=== PATIENT | female | born 1955 | race Caucasian/White ===

== ENCOUNTER 2019-09-07 22:43 | Inpatient (IN) | payer BC ==
[~2019-09-07] VITALS: Ht 175.3 cm; Wt 65.6 kg
--- NOTE | ~2019-09-07 | HEMODYNAMI ---
PATIENT:LUDMILA HAUSER MEDICAL RECORD: [id number] : 57 [id number] ADMISSION DATE: 09/07/19 Generatedon:09/08/201911:34 Patient name: LUDMILA HAUSER Patient #: [id number] SSN: [id number] : 1955 Date of study: 09/08/2019 Page: Of Hemodynamic Procedure Report Patient Data Patient Demographics Procedure consent was obtained First Name: LUDMILA Gender: Female Last Name: MURTAZA : 1955 [facility] Initial: L Age: 64 year(s) Patient #: [id number] Race: Unknown SSN: [id number] Additional ID: [id number] Contact details [address]: [address] [place] [address] State: [place] City: [place] Zip code: [address] Past Medical History Allergies: No known allergies Admission Admission Data Admission Date: 09/07/2019 Admission Time: 23:02 Arrival Date: 09/08/2019 Arrival Time: 0:00 Admit Source: Other Insurance Payor: Private Room #: D.[id number] health insurance Height (in.): 68.9 BSA: 1.79 (m2) Height (cm.): 175 BMI: 21.22 (kg/m2) Weight (lbs.): 143.3 Weight (kg.): 65 Lab Results Lab Result Date: 09/08/2019 Lab Result Time: 0:00 Biochemistry Name Units Result Min Max BUN mg/dl 9 --(*---)-- 7 18 Creatinine mg/dl 1 --(--*-)-- 0.6 1.3 eGFR ml/min 53 *-(----)-- 90 120 NONAFRICAN CBC Name Units Result Min Max Hemoglobin g/dl 12.8 -*(----)-- 13.5 17.5 Procedure Procedure Types Cath Procedure Diagnostic Procedure LHC [facility] w/Coronaries Aortic Root Angiography Sedation Charges Moderate Sedation up to 15 minutes Peripheral Cath Diagnostic Procedure Abd/Extremity Aortagram Procedure Description Procedure Date Procedure Date: 09/08/2019 Procedure Start Time: 11:19 Procedure End Time: 11:33 Procedure Staff Name Function Bartolome Lal MD Performing Physician Noreen Argueta RT Monitor Penny Saba RN Nurse Danielle Swanson RT Scrub Indication Chest pain Procedure Data Cath Procedure Fluoroscopy Diagnostic fluoroscopy Total fluoroscopy Time: 1.8 time: 1.8 min min Diagnostic fluoroscopy Total fluoroscopy dose: 292 dose: 292 mGy mGy Contrast Material Contrast Material Type Amount (ml) Isovue 300 74 Entry Location Entry Primary Successful Side Size Upsize Upsize Entry Closure Succes sful Closure Location (Fr) 1 (Fr) 2 (Fr) Remarks Device Remarks Femoral Right 5 Fr Exoseal artery Estimated blood loss: 10 ml Diagnostic catheters Device Type Used For End Catheter Placement MULTIPACK Pigtail 5 Fr Ventriculography catheter MULTIPACK JL 4.0 5Fr Procedure catheter MULTIPACK 3DRC 5Fr Procedure catheter Procedure Complications No complications Procedure Medications Medication Administration Route Dosage 0.9% NaCl I.V. 100 ml/hr Oxygen etCO2 Nasal cannula 2 l/min Lidocaine 2% added to field 20 Heparin Flush Bag added to field 2 bags (1000units/500ml NS) Versed I.V. 2 mg Fentanyl I.V. 50 mcg Versed I.V. 2 mg Fentanyl I.V. 50 mcg Hemodynamics Rest BSA: 1.79 (m2) HGB: 12.8 (g/dl) O2 Consumption: Estimated: 165.6 (ml/min) O2 Con sumption indexed: Estimated:92.51 (ml/min/m) Heart Rate: 66 (bpm) Pressure Samples Time Site Value (mmHg) Purpose Heart Use Rate(bpm) 11:21 LV 106/-3,4 Snapshot 48 11:22 AO 117/59(85) Pullback 65 11:22 LV 132/-6,24 Pullback 65 Gradients Valve Time Site 1 Site 2 Mean SEP/DFP Peak To Heart Use (mmHg) (sec/min) Peak Rate (mmHg) (bpm) Aortic 11:22 LV AO 10 19 15 65 132/-6,24 117/59(85) Calculations Valve P-P Mean Valve Index Valve Source Name Gradient Area Flow (cm2) Aortic 15 10 15 10 Snapshots Pre Cath Intra NCS Post Cath Vital Signs Time Heart Resp SPO2 etCO2 NIBP (mmHg) Rhythm Pain Sedation Rate (ipm) (%) (mmHg) Status Level (bpm) 11:12:58 69 14 97 37.3 140/82(105) NSR 0 (11) 10(A) , No pain 11:17:14 67 14 98 33.6 125/70(76) NSR 0 (11) 10(A) , No pain 11:21:26 64 13 99 30.6 126/69(88) NSR 0 (11) 10(A) , No pain 11:25:38 69 11 100 20.1 119/67(89) NSR 0 (11) 10(A) , No pain 11:29:46 73 12 100 33.6 128/73(93) NSR 0 (11) 10(A) , No pain Medications Time Medication Route Dose Verified Delivered Reason Notes Eff ectiveness by by 11:14:02 0.9% NaCl I.V. 100 Bartolome Penny used for ml/hr Lukasz Saba teacher aide clerical 11:14:09 Oxygen etCO2 2 Bartolome Penny used for Nasal l/min Lukasz Saba procedure cannula RN 11:14:15 Lidocaine 2% added 20ml Bartolome Bartolome for local to vial Lukasz Lal MD anesthetic field 11:14:19 Heparin Flush added 2 Bartolome Bartolome used for Bag to bags Lukasz Lal MD procedure (1000units/500ml field NS) 11:16:14 Versed I.V. 2 mg Bartolome Penny for Lukasz Saba sedation RN 11:16:19 Fentanyl I.V. 50 Bartolome Penny for mcg Lukasz Saba sedation RN 11:23:36 Versed I.V. 2 mg Bartolome Penny for Lukasz Saba sedation RN 11:23:42 Fentanyl I.V. 50 Bartolome Penny for mcg Lukasz Saba sedation head mixer Log Time Note 11:01:00 Arrival Date: 09/08/2019 12:00:00 AM 11:01:01 Admit Source: Other 11:01:08 Insurance Payor : Private health insurance 11:01:17 Patient Height : 68.9 inches 11:01:21 Patient Weight : 143.3 lbs 11:02:11 Lab Result : BUN 9 mg/dl 11:02:11 Lab Result : eGFR NONAFRICAN 53 ml/min 11:02:11 Lab Result : Hemoglobin 12.8 g/dl 11:02:11 Lab Result : Creatinine 1 mg/dl 11:02:36 Indication : Chest pain 11:02:54 Procedure Status Urgent Heart Cath (IP). 11:02:57 Penny Saba RN sent for patient. Start room use. 11:02:58 Time tracking: Regular hours (M-F 7:00 - 5:00) 11:03:04 Plan of Care:Hemodynamics will remain stable., Cardiac rhythm will remain stable., Comfort level will be maintained., Respiratory function will remain adequate., Patient/ family verbilizes understanding of procedure., Procedure tolerated without complication., Recovers from procedure without complications.. 11:03:25 Patient received from CVICU to CCL 1 Alert and oriented. Tansferred to table in Supine position. 11:03:28 Signed procedure consent form obtained from patient. 11:03:29 Warm blankets applied, and alireza hugger turned on for patient comfort. 11:03:30 Correct patient and procedure confirmed by team. 11:03:31 ECG and BP/O2 sat monitors applied to patient. 11:03:38 H&P Date Dictated: 09/07/2019 Within 30 days and on chart., H&P Addendum completed by physician on day of procedure. (MUST COMPLETE FOR ALL OUTPATIENTS). 11:03:39 Pre-procedure instructions explained to patient. 11:03:43 Family unavailable. 11:03:45 Patient NPO since Midnight. 11:03:54 Patient allergic to No known allergies 11:03:57 Is the patient allergic to Iodine/contrast media? No. 11:04:03 Was the patient premedicated? Yes 11:04:04 Is patient on blood thinner?Yes 11:04:22 Patient diabetic? No. 11:04:27 Snore? No 11:04:28 Sleep apnea? No 11:04:31 Sticks out tongue? Yes 11:04:35 Dentures? No ? 11:04:41 Patient pain scale 8/10 ?. 11:04:48 IV patent on arrival in right hand with 0.9% NaCl at KVO. 11:04:52 Lab results completed and on chart. 11:04:58 Right groin area was prepped with chlora-prep and draped in sterile fashion 11:11:48 Baseline sample Acquired. 11:11:48 Vital chart was started 11:11:53 Rhythm: sinus rhythm 11:11:55 Full Disclosure recording started 11:12:00 Alarms reviewed by R. N. 11:12:01 Sharps counted by scrub and verified by RKeikoN. 11:12:03 Physician paged 11:12:08 Physician arrived 11:12:08 --------ALL STOP TIME OUT------ 11:12:10 Final Timeout: patient, procedure, and site verified with staff and physician. All members of the team are in agreement. 11:12:17 Right groin site verified by team. 11:12:22 Fire Safety Assessment: A--An alcohol-based skin anteseptic being used preoperatively., C--Open oxygen or nitrous oxide is being used., D--An ESU, laser, or fiber-optic light is being used. 11:12:29 Physical assessment completed. ASA score P 2 - A patient with mild systemic disease as per Bartolome Lal MD. 11:12:40 3a) 45-59 Moderately reduced kidney function. 11:12:44 Maximum allowable contrast dose (3.7 X eGFR X 0.75)147 ml. 11:12:49 Sedation plan: IV Moderate Sedation Medication:Versed, Fentanyl 11:12:57 Use device set Femoral Dx 11:14:02 0.9% NaCl 100 ml/hr I.V. was administered by Penny Saba RN; used for procedure; Verbal order read back and verified. 11:14:09 Oxygen 2 l/min etCO2 Nasal cannula was administered by Penny Saba RN; used for procedure; Verbal order read back and verified. 11:14:15 Lidocaine 2% 20ml vial added to field was administered by Bartolome Lal MD; for local anesthetic; Verbal order read back and verified. 11:14:19 Heparin Flush Bag (1000units/500ml NS) 2 bags added to field was administered by Bartolome Lal MD; used for procedure; Verbal order read back and verified. 11:16:14 Versed 2 mg I.V. was administered by Penny Saba RN; for sedation; Verbal order read back and verified. :16:19 Fentanyl 50 mcg I.V. was administered by Penny Jayant RN; for sedation; Verbal order read back and verified. 11:19:14 Procedure started. 11:19:18 Zero performed for pressure channel P1 11:19:38 Local anesthetic to right femoral artery with Lidocaine 2% by Bartolome Lal MD.INITIAL ACCESS ONLY 11:20:27 A 5 Fr sheath was inserted into the Right Femoral artery 11:20:31 ACIST Syringe (44956) opened to sterile field. 11:20:32 Bag Decanter (2002S) opened to sterile field. 11:20:32 Medline Cath Pack ([id number]) opened to sterile field. 11:20:34 ACIST Hand Control (98452) opened to sterile field. 11:20:34 ACIST Manifold (06927) opened to sterile field. 11:20:35 DIAGNOSTIC Multipack 5Fr catheter set (LT1436) opened to sterile field. 11:20:36 Tegaderm 4 x 4 (1626W) opened to sterile field. 11:20:38 SHEATH 5FR [place] (LAN682) opened to sterile field. 11:20:39 EMERALD Guide Wire (448-892) opened to sterile field. 11:21:27 A MULTIPACK Pigtail 5 Fr catheter was advanced over the wire and used for Ventriculography. 11:22:05 LV gram done using TOMAS 11:22:11 EF : 55 % 11:22:22 Aortic Root visualized 11:23:36 Versed 2 mg I.V. was administered by Penny Saba RN; for sedation; Verbal order read back and verified. 11:23:42 Fentanyl 50 mcg I.V. was administered by Penny Saba RN; for sedation; Verbal order read back and verified. 11:23:42 Abdominal Aortagram was performed. 11:23:53 Catheter removed. 11:24:14 A MULTIPACK JL 4.0 5Fr catheter was advanced over the wire and used for Procedure. 11:24:21 LCA angiography performed. 11:25:53 Catheter removed. 11:27:23 A MULTIPACK 3DRC 5Fr catheter was advanced over the wire and used for Procedure. 11:27:26 RCA angiography performed. 11:27:33 Catheter removed. 11:27:50 EXOSEAL 5Fr (EX500) opened to sterile field. 11:28:07 Sheath removed intact; hemostasis achieved with Exoseal to the Right Femoral artery. 11:28:17 Procedure ended.(Physican Out) 11:29:14 Fluoroscopy time 01.80 minutes. 11:29:18 Fluoroscopy dose: 292 mGy 11::18 Flurop Dose total: 292 11:29:25 Dose Area Product 91564 mGy/cm. 11:29:30 Contrast amount:Isovue 300 74ml. 11:29:38 Maximum allowable dose exceeded? No. 11::38 Sharps counted by scrub and verified by R.N. 11:29:53 Insertion/operative site no bleeding no hematoma. 11:29:57 Post right femoral artery:stable 11:29:59 Post Procedure Pulses reassessed and unchanged 11:30:05 Post-procedure physical assessment completed. ASA score P 2 - A patient with mild systemic disease as per Bartolome Lal MD. 11:30:09 Post procedure rhythm: sinus rhythm 11:30:12 Estimated blood loss: 10 ml 11:30:13 Post procedure instruction explained to patient.Patient verbalizes understanding. 11:30:14 Patient needs reinforcement of post procedure teaching. 11:31:33 Procedure type changed to Cath procedure, Diagnostic procedure, LHC, LHC w/Coronaries, Aortic Root Angiography, Sedation Charges, Moderate Sedation up to 15 minutes, Peripheral Cath Diagnostic Procedure, Abd/Extremity, Aortagram 11:31:35 Procedure and supply charges have been captured, reviewed, submitted and are correct. 11:32:29 Procedure Complication : No complications 11:32:32 Vital chart was stopped 11:32:35 [facility] Findings: mild to moderate CAD (<70%) 11:32:39 Operative report dictated upon procedure completion. 11:32:39 See physician's report for complete and final results. 11:32:52 Report given to CVICU. 11:32:56 Patient transfered to CVICU with Bed. 11:33:00 Procedure ended. 11:33:00 Full Disclosure recording stopped 11:33:06 End room use (Document Last) 11:33:20 End room use (Document Last) 11:33:51 End room use (Document Last) Device Usage Item Name Manufacture Quantity Catalog Hospital Part Current Minimal L ot# / Number Charge Number Stock Stock Serial# Code ACIST Acist 1 70050 853729 528192 075473 20 [employer] (70327Social Media Simplified Bag Microtek 1 257229 42908 528961 5 Decanter Medical Inc. () Medline Medline 1 [id number] 735533 54504 673779 5 Cath Pack ([id number]) ACIST Hand Acist 1 94243 986801 070395 151202 5 Control Medical (53170) Systems Inc ACIST Acist 1 56328 469677 636380 567716 5 Manifold Medical (14306) Systems Inc DIAGNOSTIC Cardinal 1 SD6877 674111 33047 672857 30 Multipack Zimory 5Fr catheter set (YQ3872) Tegaderm 4 3M 1 1626W 857840 143803 897687 5 x 4 (1626W) SHEATH 5FR Terumo 1 AGF888 879023 373327 442624 5 [place] (NTW055) EMERALD Cardinal 1 854-371 371090 787239 557[address] [facility] (355-703) MULTIPACK Cardinal 1 571230 5 Pigtail 5 Health Fr catheter MULTIPACK Cardinal 1 430498 5 JL 4.0 5Fr Health catheter MULTIPACK Cardinal 1 139998 5 3DRC 5Fr Health catheter EXOSEAL 5Fr Cardinal 1 EX500 042400 343284 072929 10 (EX500) Health Signature Audit [place] Stage Time Signature Unsigned Intra-Procedure 09/08/2019 Noreen Argueta 11:33:20 AM RT(R) Intra-Procedure 09/08/2019 Penny Saba 11:33:51 AM RN Intra-Procedure 09/08/2019 Bartolome Lal MD 11:34:14 AM [id number] [place] [address]
[2019-09-07] MEDS ORDERED: VENTOLIN HFA [SP8 GM INH (22:46)
[2019-09-07 22:53] LABS: BASOPHILS 0.4 % (0-2); EOSINOPHILS 1.6 % (0-7); HEMATOCRIT 36.2 % (36.0-48.0); HEMOGLOBIN 12.8 g/dL (12-16); IMMATURE GRANULOCYTES 0.4 % (0-5); LYMPHOCYTES 32.8 % (15-50); MCH 30.8 pg (26.0-34.0); MCHC 35.4 g/dL (31.0-37.0); MCV 87.2 fL (80.0-100.0); MEAN PLATELET VOLUME 8.9 fL (7.4-10.4); MONOCYTES 10.4 % (2-11); NEUTROPHILS 54.4 % (40-80); PLATELET COUNT 223 10x3/uL (130-400); RBC 4.15 10x6/uL (4.00-5.40); RDW 11.8 % (11.5-14.5); WBC 4.5 10x3/uL (4.8-10.8)
[2019-09-07 23:00] VITALS: BP 130/66
[2019-09-07 23:08] LABS: CALC OSMOLALITY 262 mosm/kg (275-300); CALCIUM 9.1 mg/dL (8.5-10.1); CARBON DIOXIDE 21.7 mmol/L (21.0-32.0); CHLORIDE - SERUM 99 mmol/L (98-107); CREATININE - SERUM 1.1 mg/dL (0.6-1.3); GLUCOSE 108 mg/dL (74-106); POTASSIUM - SERUM 3.7 mmol/L (3.5-5.1); SODIUM 131 mmol/L (136-145); UREA NITROGEN 10 mg/dL (7-18); eGFR NON AFRICAN AMERICAN 53 mL/min (90-120)
[2019-09-07 23:09] LABS: INR 1.31 (0.85-1.17); PROTIME 16.2 SECONDS (11.6-15.0)
[2019-09-07 23:25] LABS: ALBUMIN 3.3 g/dL (3.4-5.0); ALKALINE PHOSPHATASE 53 U/L (30-120); ALT (SGPT) 22 U/L (10-68); BILIRUBIN - TOTAL 0.68 mg/dL (0.2-1.3); CKMB 0.8 U/L (0.0-3.6); CREATINE KINASE 43 UL (21-215); MAGNESIUM - SERUM 1.5 mg/dL (1.8-2.4); PROTEIN - SERUM 6.7 g/dL (6.4-8.2)
[2019-09-07 23:26] LABS: TROPONIN-I < 0.017 ng/mL (0.000-0.060)
[2019-09-07 23:32] LABS: APTT > 200.0 SECONDS (22.8-39.4); D-DIMER-QUANTITATIVE 2.01 ug/mLFEU (0.20-0.54)
[2019-09-08] VITALS (18 sets, daily range): BP systolic 114–142; BP diastolic 61–82; Ht 175.3 cm; Wt 65.6 kg
--- NOTE | 2019-09-08 01:30 | NUR ---
PT TRANSFERED SELF FROM ER BED TO ICU BED, PT AWAKE AND ALERT, HOOKED UP TO MONITORS, VITALS STABLE, CALL LIGHT WITHIN REACH, WILL CONTINUE TO OBSERVE. IVF TO RIGHT FOREARM NS AT 75ML/HR.
--- NOTE | 2019-09-08 01:58 | NUR ---
REC'D ORDERS TO RE START HEPARIN DRIP AT 800 UNITS/HR AND PTT RECHECKS Q6. CALL LIGHT WITHIN REACH, WILL CONTINUE TO OBSERVE.
--- NOTE | 2019-09-08 03:00 | NUR ---
PT LYING IN BED RESTING, MONITORS ON AND WORKING,VITALS STABLE, PT AWAKE AND ALERT, STATES CHEST PAIN IS STILL PRESENT. CALL LIGHT WITHIN REACH, PTS PERSONAL BELONGINGS AT BEDSIDE. SEE FLOW SHEET FOR FURTHER DETAILS. WILL CONTINUE TO OBSERVE.
[2019-09-08 05:02] LABS: BASOPHILS 0.3 % (0-2); EOSINOPHILS 2.6 % (0-7); HEMATOCRIT 35.1 % (36.0-48.0); HEMOGLOBIN 12.2 g/dL (12-16); IMMATURE GRANULOCYTES 0.3 % (0-5); LYMPHOCYTES 37.6 % (15-50); MCHC 34.8 g/dL (31.0-37.0); MCV 89.1 fL (80.0-100.0); MEAN PLATELET VOLUME 9.2 fL (7.4-10.4); MONOCYTES 14.2 % (2-11); PLATELET COUNT 192 10x3/uL (130-400); RBC 3.94 10x6/uL (4.00-5.40); RDW 11.9 % (11.5-14.5); WBC 3.9 10x3/uL (4.8-10.8)
[2019-09-08 05:15] LABS: INR 1.27 (0.85-1.17); PROTIME 15.8 SECONDS (11.6-15.0)
[2019-09-08 05:31] LABS: ALBUMIN 3.1 g/dL (3.4-5.0); ALKALINE PHOSPHATASE 49 U/L (30-120); ALT (SGPT) 25 U/L (10-68); BILIRUBIN - TOTAL 0.48 mg/dL (0.2-1.3); CALC OSMOLALITY 271 mosm/kg (275-300); CALCIUM 8.7 mg/dL (8.5-10.1); CARBON DIOXIDE 26.5 mmol/L (21.0-32.0); CHLORIDE - SERUM 106 mmol/L (98-107); CKMB 0.8 U/L (0.0-3.6); CREATINE KINASE 47 UL (21-215); GLUCOSE 88 mg/dL (74-106); MAGNESIUM - SERUM 1.8 mg/dL (1.8-2.4); POTASSIUM - SERUM 4.1 mmol/L (3.5-5.1); PROTEIN - SERUM 6.3 g/dL (6.4-8.2); SODIUM 137 mmol/L (136-145); UREA NITROGEN 9 mg/dL (7-18); eGFR NON AFRICAN AMERICAN 59 mL/min (90-120)
[2019-09-08 05:34] LABS: TROPONIN-I < 0.017 ng/mL (0.000-0.060)
--- NOTE | 2019-09-08 05:54 | NUR ---
PT CALLED, UPDATE PROVIDED AND PASSCODE GIVEN, MONITORS ON AND WORKING, VITALS STABLE, CALL LIGHT WITHIN REACH, WILL CONTINUE TO OBSERVE.
--- NOTE | 2019-09-08 07:00 | NUR ---
HEPARIN GTT TITRATED PER PROTOCOL, SEE HEPARIN GTT FLOWSHEET. RECHECK SCHEDULED FOR 1300 FOR PTT.
--- NOTE | 2019-09-08 08:17 | NUR ---
UP IN BED AWAKE AT THIS TIME. VSS. PT C/O CHEST PAIN THAT RADIATES TO BACK AND LT ARM. PT STATES THIS PAIN HAD BEEN THE SAME SINCE BEFORE SHE CAME TO THE HOSPITAL. PT CURRENTLY NPO FOR POSSIBLE HEART CATH TODAY. RECIEVES PRN MEDICATION FOR PAIN PER ORDERS. CALL LIGHT AND PERSONAL ITEMS IN REACH. WILL CONTINUE PLAN OF CARE.
--- NOTE | 2019-09-08 09:18 | NUR ---
SPOKE WITH PTS SON, UPDATES PROVIDED AFTER CALL IN CODE VERIFIED. VSS. WILL CONTINUE PLAN OF CARE.
--- NOTE | 2019-09-08 10:10 | NUR ---
SPOKE WITH OIL WELL DIRECTIONAL SURVEYOR. OIL WELL DIRECTIONAL SURVEYOR STATED THAT DR ODEN WILL BE BY IN A LITTLE BIT TO SEE PT.
--- NOTE | 2019-09-08 11:01 | NUR ---
LEFT FOR INTERNET MARKETING SPECIALIST AT THIS TIME VIA BED ACCOMPANIED BY HOSPITAL STAFF. PTS FAMILY UPDATED, SPOKE WITH PTS SON WHO STATES PTS IS RIGHT BESIDE HIM AT THE TIME.
[2019-09-08 11:18] LABS: BASOPHILS 0.3 % (0-2); EOSINOPHILS 2.8 % (0-7); HEMATOCRIT 36.2 % (36.0-48.0); HEMOGLOBIN 12.3 g/dL (12-16); IMMATURE GRANULOCYTES 0.3 % (0-5); LYMPHOCYTES 37.3 % (15-50); MCH 30.7 pg (26.0-34.0); MCV 90.3 fL (80.0-100.0); MEAN PLATELET VOLUME 9.1 fL (7.4-10.4); MONOCYTES 17.6 % (2-11); NEUTROPHILS 41.7 % (40-80); PLATELET COUNT 185 10x3/uL (130-400); RBC 4.01 10x6/uL (4.00-5.40); WBC 3.2 10x3/uL (4.8-10.8)
[2019-09-08 11:29] LABS: CHOL - HDL RATIO 4.7 ratio (2.3-4.1); LDL-HDL RATIO 3.2 ratio (1.5-3.5)
--- NOTE | 2019-09-08 11:40 | NUR ---
ARRIVED TO ROOM AT THIS TIME FROM SENIOR QUALITY ASSURANCE SPECIALIST. SENIOR QUALITY ASSURANCE SPECIALIST NURSE STATED IT WAS A CLEAN CATH AND THAT PT NEEDS TO LAY FLAT FOR 2 HOURS. PTS SON UPDATED OF THIS, SON ALSO SPOKE WITH DR GARCIA. VSS. RT GROIN SITE WITHOUT ANY S/S HEMATOMA OR DRAINAGE. WILL CONTINUE PLAN OF CARE.
[2019-09-08] MEDS ORDERED: PROTONIX40 MG PO (11:51)
[2019-09-08] MEDS ORDERED: CARAFATE1 G PO (11:51)
[2019-09-08 11:56] LABS: CKMB 0.6 U/L (0.0-3.6); CREATINE KINASE 43 UL (21-215); TROPONIN-I < 0.017 ng/mL (0.000-0.060)
--- NOTE | 2019-09-08 12:46 | NUR ---
PER DR GARCIA, DC PT HOME TODAY.
--- NOTE | 2019-09-08 12:48 | NUR ---
CALLED PTS PCP CLINIC FOR A [address] VARELA. APPT MADE FOR 09/15/19 AT 1000.
--- NOTE | 2019-09-08 12:57 | NUR ---
PTS SON STATING HE WOULD BE BY AROUND 3 TO TAKE PT HOME.
--- NOTE | 2019-09-08 13:29 | NUR ---
NOTED PT TO BE DISCHARGED HOME WITH PROTONIX AND CARAFATE. PT STATES SHE HAS ALREADY BEEN ON THOSE MEDS AND JUST GOT THOSE PRESCRIPTIONS REFILLED YESTERDAY. VSS. NO ACUTE DISTRESS NOTED. RT GROIN SITE WDL WITH NO S/S HEMATOMA, DRAINAGE, OR EDEMA. PULSES PALPABLE. WILL CONTINUE PLAN OF CARE.
--- NOTE | 2019-09-08 14:04 | MORECARE ---
CASE MANAGEMENT DISCHARGE SUMMARY PATIENT: LUDMILA HAUSER UNIT: [id number] ADM DATE: 09/07/19 AGE: 64 : 57 SEX: F ROOM/BED: D[facility] AUTHOR: KARMEN ROMAN PHYSICIAN: REFERRING PHYSICIAN: MADELINE GARCIA MD DATE OF SERVICE: 09/08/19 Discharge Plan Patient Name: LUDMILA HAUSER [facility] [facility] 1955 Planned Disposition: Home Anticipated Discharge Date: Discharge Date: Expected LOS: Initial Reviewer: [email or web address] Initial Review Date: 09/08/2019 Generated: 09/08/19 3:04 pm Comments DCP- Discharge Planning Updated by [email or web address]: Gudelia Schmitz on 09/08/19 12:[address] Patient Name: LUDMILA HAUSER Admission Status: ER Accout number: [id number] Admission Date: 09-07-2019 : 1955 Admission Diagnosis: Attending: MADELINE GARCIA Current LOS: 1 Anticipated DC Date: Planned Disposition: Home Primary Insurance: [employer] OUT OF STATE Discharge Planning Comments: CM MET WITH PATIENT ABOUT DC PLANNING/NEEDS. DENIES NEED FOR REHAB, HH OR EQUIPMENT. PLANS TO DC TO HOME TODAY AND HER SON WILL MISDRAW HAND. CM WILL ASSIST NEEDED. Furniture Duster: Gudelia Schmitz DCPIA - Discharge Planning Initial Assessment Updated by [email or web address]: Gudelia Schmitz on 09/08/19 1:55 pm * Is the patient Alert and Oriented? Yes * PCP [facility] * [facility] * Preadmission Environment Home with Family * ADLs Independent * Equipment None * Community resources currently utilized None * Additional services required to return to the preadmission environment? No * Can the patient safely return to the preadmission environment? Yes * Has this patient been hospitalized within the prior 30 days at any hospital? Yes Patient Name: LUDMILA HAUSER Page [id number] at 1404 All edits/amendments must be made on the electronic document DICTATION DATE: 09/08/19 1404 ENVIRONMENTAL SUSTAINABILITY MANAGER: SAULO 09/08/19 1404 RPT#: [id number] DC DATE: STATUS: ADM IN [facility] [address] [place] [address] END OF REPORT
--- NOTE | 2019-09-08 15:18 | NUR ---
LEFT AT THIS TIME VIA PERSONAL VEHICLE WITH FAMILY MEMBER. RT GROIN SITE WDL WITH NO S/S HEMATOMA, EDEMA, DRAINAGE. PT DENIE ANY NEEDS OR CONCERNS. DISCHARGED WITH ALL PERSONAL ITEMS, DISCHARGE PAPERWORK, DISCHARGE TEACHINGS. STATES UNDERSTANDING ON DISCHARGE MEDICATIONS, TEACHINGS, AND WILL BE ABLE TO MAKE UPCOMING APPT. NO ACUTE DISTRESS NOTED. NO FURTHER ACTIONS.
--- NOTE | 2019-09-09 19:05 | MORECARE ---
CASE MANAGEMENT DISCHARGE SUMMARY PATIENT: LUDMILA HAUSER UNIT: [id number] ADM DATE: 09/07/19 AGE: 64 : 57 SEX: F ROOM/BED: D[facility] AUTHOR: KARMEN ROMAN PHYSICIAN: REFERRING PHYSICIAN: MADELINE GARCIA MD DATE OF SERVICE: 09/09/19 Discharge Plan Patient Name: LUDMILA HAUSER Facility: [facility]:[place] : 1955 Planned Disposition: Home Anticipated Discharge Date: Discharge Date: 09/08/2019 Expected LOS: Initial Reviewer: [email or web address] Initial Review Date: 09/08/2019 Generated: 09/09/19 8:04 pm DCP- Discharge Planning Updated by [email or web address]: Gudelia Schmitz on 09/08/19 12:[address] Patient Name: LUDMILA HAUSER Admission Status: ER Accout number: [id number] Admission Date: 09-07-2019 : 1955 Admission Diagnosis: Attending: MADELINE GARCIA Current LOS: 1 Anticipated DC Date: Planned Disposition: Home Primary Insurance: [employer] OUT OF STATE Discharge Planning Comments: CM MET WITH PATIENT ABOUT DC PLANNING/NEEDS. DENIES NEED FOR REHAB, HH OR EQUIPMENT. PLANS TO DC TO HOME TODAY AND HER SON WILL EXECUTIVE ASST. CM WILL ASSIST NEEDED. [employer] Windows Engineer: Gudelia Schmitz DCPIA - Discharge Planning Initial Assessment Updated by [email or web address]: Gudelia Schmitz on 09/08/19 1:55 pm * Is the patient Alert and Oriented? Yes * PCP [facility] * [facility] * Preadmission Environment Home with Family * ADLs Independent * Equipment None * Community resources currently utilized None * Additional services required to return to the preadmission environment? No * Can the patient safely return to the preadmission environment? Yes * Has this patient been hospitalized within the prior 30 days at any hospital? Yes Last DP export: 09/08/19 1:04 p Patient Name: LUDMILA HAUSER Page [id number] at 1900 All edits/amendments must be made on the electronic document DICTATION DATE: 09/09/191903 MUSEUM PREPARATOR: SAULO 09/09/191903 RPT#: [id number] DC DATE:09/08/19 STATUS: DIS IN [facility] [address] [place] [address] END OF REPORT
== END 2019-09-08 15:22 | disposition home or self-care (01) | DRG 287 ==
LOC: D.ER 22:43 → D.CVICU 23:02
PROVIDERS: Family Medicine; Internal Medicine Cardiovascular Disease; ADMIT Internal Medicine Nephrology; ATTEND Internal Medicine Nephrology
PROC: B2151ZZ Fluoroscopy of Left Heart using Low Osmolar Contrast (ICD-10-PCS; 2019-09-08)
PROC: 4A023N7 Measurement of Cardiac Sampling and Pressure, Left Heart, Percutaneous Approach (ICD-10-PCS; 2019-09-08)
PROC: B2111ZZ Fluoroscopy of Multiple Coronary Arteries using Low Osmolar Contrast (ICD-10-PCS; principal; 2019-09-08 11:00)
DX: I20.0 Unstable angina (principal); E87.1 Hypo-osmolality and hyponatremia; E83.42 Hypomagnesemia; I10 Essential (primary) hypertension; M19.90 Unspecified osteoarthritis, unspecified site; F17.200 Nicotine dependence, unspecified, uncomplicated

== ENCOUNTER 2019-10-03 10:26 | Emergency (ER) | payer BC ==
[~2019-10-03] VITALS: Ht 175.3 cm; Wt 62.7 kg
[~2019-10-03 10:26] MED LIST: CARAFATE1 G PO; PROTONIX40 MG PO; VENTOLIN HFA [SP8 GM INH
[2019-10-03 10:33] VITALS: Ht 175.3 cm; Wt 62.7 kg
[2019-10-03] MEDS ORDERED: HTN MED? (10:35)
[2019-10-03 11:04] LABS: BASOPHILS 0.2 % (0-2); EOSINOPHILS 0.5 % (0-7); HEMATOCRIT 38.8 % (36.0-48.0); HEMOGLOBIN 13.9 g/dL (12-16); IMMATURE GRANULOCYTES 0.3 % (0-5); LYMPHOCYTES 16.1 % (15-50); MCH 30.1 pg (26.0-34.0); MCHC 35.8 g/dL (31.0-37.0); MEAN PLATELET VOLUME 8.8 fL (7.4-10.4); MONOCYTES 10.3 % (2-11); NEUTROPHILS 72.6 % (40-80); RBC 4.62 10x6/uL (4.00-5.40); RDW 11.9 % (11.5-14.5); WBC 6.2 10x3/uL (4.8-10.8)
[2019-10-03 11:06] LABS: APTT 33.5 SECONDS (22.8-39.4); INR 1.1 (0.85-1.17); PROTIME 14.2 SECONDS (11.6-15.0)
[2019-10-03 11:07] LABS: PLATELET COUNT 317 10x3/uL (130-400)
[2019-10-03 11:15] LABS: ALBUMIN 3.8 g/dL (3.4-5.0); ALKALINE PHOSPHATASE 64 U/L (30-120); ALT (SGPT) 31 U/L (10-68); CALCIUM 9.2 mg/dL (8.5-10.1); CARBON DIOXIDE 25.8 mmol/L (21.0-32.0); CKMB 0.5 U/L (0.0-3.6); CREATINE KINASE 41 UL (21-215); CREATININE - SERUM 1.2 mg/dL (0.6-1.3); GLUCOSE 102 mg/dL (74-106); MAGNESIUM - SERUM 1.6 mg/dL (1.8-2.4); POTASSIUM - SERUM 3.7 mmol/L (3.5-5.1); PROTEIN - SERUM 7.5 g/dL (6.4-8.2); UREA NITROGEN 10 mg/dL (7-18); eGFR NON AFRICAN AMERICAN 48 mL/min (90-120)
[2019-10-03 11:32] LABS: CALC OSMOLALITY 240 mosm/kg (275-300); TROPONIN-I < 0.017 ng/mL (0.000-0.060)
[2019-10-03 11:34] LABS: CHLORIDE - SERUM 85 mmol/L (98-107); SODIUM 120 mmol/L (136-145)
[2019-10-03 15:15] VITALS: BP 107/49
== END 2019-10-03 15:20 | disposition home or self-care (01) ==
LOC: D.ER 10:26
PROVIDERS: Family Medicine
DX: R07.89 Other chest pain (principal); I10 Essential (primary) hypertension; Z72.0 Tobacco use; R20.0 Anesthesia of skin

== ENCOUNTER 2019-10-20 17:56 | Emergency (ER) | payer BC ==
[~2019-10-20] VITALS: Ht 175.3 cm; Wt 63.6 kg
[~2019-10-20 17:56] MED LIST changes: +HTN MED?
[2019-10-20 18:07] VITALS: Ht 175.3 cm; Wt 63.6 kg
[2019-10-20] MEDS ORDERED: HYDROCHLOROTHIA25 MG PO (18:14)
[2019-10-20] MEDS ORDERED: COZAAR50 MG PO (18:14)
[2019-10-20 18:46] LABS: BASOPHILS 0.1 % (0-2); EOSINOPHILS 0.4 % (0-7); HEMOGLOBIN 13.8 g/dL (12-16); IMMATURE GRANULOCYTES 0.7 % (0-5); LYMPHOCYTES 24.3 % (15-50); MCH 30.9 pg (26.0-34.0); MCHC 35.4 g/dL (31.0-37.0); MCV 87.2 fL (80.0-100.0); MEAN PLATELET VOLUME 8.6 fL (7.4-10.4); MONOCYTES 12.7 % (2-11); NEUTROPHILS 61.8 % (40-80); PLATELET COUNT 281 10x3/uL (130-400); RBC 4.47 10x6/uL (4.00-5.40); WBC 9.1 10x3/uL (4.8-10.8)
[2019-10-20 18:53] LABS: CALC OSMOLALITY 258 mosm/kg (275-300); CALCIUM 9.6 mg/dL (8.5-10.1); CARBON DIOXIDE 22.9 mmol/L (21.0-32.0); CHLORIDE - SERUM 94 mmol/L (98-107); GLUCOSE 85 mg/dL (74-106); POTASSIUM - SERUM 3.2 mmol/L (3.5-5.1); SODIUM 129 mmol/L (136-145); UREA NITROGEN 16 mg/dL (7-18); eGFR NON AFRICAN AMERICAN 59 mL/min (90-120)
[2019-10-20 19:03] LABS: ALBUMIN 3.9 g/dL (3.4-5.0); ALKALINE PHOSPHATASE 58 U/L (30-120); ALT (SGPT) 27 U/L (10-68); AMYLASE - SERUM 78 U/L (25-115); BILIRUBIN - TOTAL 0.58 mg/dL (0.2-1.3); LIPASE 148 U/L (73-393); PROTEIN - SERUM 7.3 g/dL (6.4-8.2); TROPONIN-I < 0.017 ng/mL (0.000-0.060)
[2019-10-20 20:08] LABS: BILIRUBIN NEGATIVE (NEGATIVE); GLUCOSE NEGATIVE (NEGATIVE); KETONE NEGATIVE (NEGATIVE); NITRITE NEGATIVE (NEGATIVE); SPECIFIC GRAVITY 1.005 (1.005-1.020); UROBILINOGEN NORMAL (NORMAL)
[2019-10-20] MEDS ORDERED: ZOFRAN ODT4 MG/UDTAB PO (20:32)
[2019-10-20 20:42] VITALS: BP 172/96
== END 2019-10-20 20:42 | disposition home or self-care (01) ==
LOC: D.ER 17:56
PROVIDERS: Family Medicine
DX: R10.13 Epigastric pain (principal); R11.0 Nausea; I10 Essential (primary) hypertension; Z72.0 Tobacco use